=== PATIENT | male | born 2000 | race African-American/Black ===

== ENCOUNTER 2023-11-06 13:29 | Emergency (ER) | payer OTHER ==
[2023-11-06 13:36] VITALS: TEMP 98.4; BMI 25.4
[2023-11-06] MEDS ORDERED: IBUPROFEN 600 MG TABLET (FP) PO ONE ×2 (15:27→15:43)
[2023-11-06 18:17] VITALS: BP 118/84; PULSE 74; RESP 18
== END 2023-11-06 18:18 | disposition home or self-care (01) ==
LOC: JERFT 13:29
DX: J02.9 Acute pharyngitis, unspecified (principal); R51.9 Headache, unspecified; R42 Dizziness and giddiness; M79.10 Myalgia, unspecified site; R11.0 Nausea; R19.7 Diarrhea, unspecified; R05.9 Cough, unspecified; U07.1 COVID-19
CPT/HCPCS: 0241U-QW; 87651; 99283-25